=== PATIENT | male | born 1995 | race Caucasian/White ===

== ENCOUNTER 2020-08-13 18:19 | Emergency (ER) | payer OTHER ==
[~2020-08-13] VITALS: Wt 123.8 kg
[2020-08-13] MEDS ORDERED: NAPROSYN500 MG PO (19:25)
== END 2020-08-13 19:45 | disposition home or self-care (01) ==
LOC: ED 18:19
DX: M25.511 Pain in right shoulder (principal); R07.89 Other chest pain; M25.561 Pain in right knee; G89.29 Other chronic pain

== ENCOUNTER 2022-05-21 20:45 | Emergency (ER) | payer OTHER ==
[~2022-05-21 20:45] MED LIST: NAPROSYN500 MG PO
== END 2022-05-21 23:00 | disposition left against medical advice (07) ==
LOC: ED 20:45
DX: Z53.21 Procedure and treatment not carried out due to patient leaving prior to being seen by health care provider (principal)